=== PATIENT | female | born 1960 | race Caucasian/White ===

== ENCOUNTER → 2019-05-17 12:22 | Day surgery (SDC) | payer BC ==
[~2019-05-17 12:22] MED LIST: Buffered Lidocaine 1% SYRIN* 1 ML/SYRINGE INTRADERM ONE; Dexamethasone IV* 4 MG/ML 1 ML (4 MG) ONE; Famotidine IV* 10 MG/ML 2 ML (20 mg) IV ONE; Famotidine IV* 10 MG/ML 2 ML (20 mg) ONE; Labetalol IV* 5 MG/ML 20 ML VIAL ONE; Lactated Ringers 1000 ML Bag* 1,000 ML IV SCH; Lidocaine 2% PF * 5 ML VIAL ONE; Midazolam* 1 MG/ML 5 ML VIAL (5 MG) ONE; Naloxone* 0.4 MG/ML 1 ML VIAL IV PRN; Ondansetron INJ* 2 MG/ML VIAL IV PRN; Ondansetron INJ* 2 MG/ML VIAL ONE; Propofol* 10 MG/ML 20 ML BTL ONE; fentaNYL* 50 MCG/ML 2 ML VIAL (100 MCG VIAL) IV PRN; fentaNYL* 50 MCG/ML 2 ML VIAL (100 MCG VIAL) ONE
[2019-05-17 15:22] VITALS: BP 150/84
--- NOTE | 2019-05-17 21:18 | OP ---
DATE OF OPERATION: 05/17/19 - SDS DATE OF : 62 SURGEON: Brian Reed MD PREOPERATIVE DIAGNOSIS: Hypertrophied tonsils. POST-OP DIAGNOSIS: Hypertrophied tonsils. OPERATIVE PROCEDURE: Tonsillectomy. BRIEF HISTORY: This is a 58-year-old female with markedly hypertrophied tonsils , sudden onset. She was immunocompromised and, since this was not resolving with medical management, elected for surgical biopsy. DESCRIPTION OF PROCEDURE: The patient was taken to the operating room, general anesthetic was given, patient intubated. Tongue, mandible, and soft palate were retracted. Coblator was used to remove the tonsils. They were both sent for microscopic examination. Once hemostasis was obtained, the patient was awakened, extubated and sent to recovery room in stable condition. Instrument and sponge counts correct. Blood loss minimal. [id number] #: [id number] MTDD
== END | disposition home or self-care (01) ==
LOC: OR 12:22
PROVIDERS: ATTEND Otolaryngology
DX: J35.1 Hypertrophy of tonsils (principal); R06.83 Snoring; I10 Essential (primary) hypertension; K21.9 Gastro-esophageal reflux disease without esophagitis; K51.90 Ulcerative colitis, unspecified, without complications; M06.9 Rheumatoid arthritis, unspecified; F32.9 Major depressive disorder, single episode, unspecified
CPT/HCPCS: 88304; J1100; J2250; J2405; J2704; J3010